=== PATIENT | male | born 1990 | race African-American/Black ===

== ENCOUNTER → 2023-04-29 | Emergency (ER) | payer OTHER ==
[~2023-04-29] MED LIST: KETOROLAC 30 MG/ML INJ ONE; NA CHLORIDE 0.9% 1,000 ML ONE
[2023-04-29 19:13] LABS: Specific Gravity 1.018 (1.005-1.030); Urine Bilirubin NEGATIVE (Negative); Urine Blood Negative (Negative); Urine Clarity Clear (Clear); Urine Color Light-Yellow (Yellow); Urine Glucose NEGATIVE (Negative); Urine Protein NEGATIVE (Negative); Urine Urobilinogen Normal (Normal); Urine pH 6.5 (5.0-7.0)
[2023-04-29 19:32] LABS: Absolute Basophils 0.1 K/uL (0-0.5); Absolute Eosinophils 0.2 K/uL (0-0.5); Absolute Lymphocytes (CBC) 2.5 K/uL (0.7-4.9); Basophils % 1.1 % (0-1.3); Eosinophils % 2.9 % (0-4.4); Hematocrit 38.7 % (39.6-49.0); Lymphocytes % 35.3 % (15.3-44.8); MCV 90.3 fL (80-100); MPV 6.3 fL (7.6-11.3); Platelets 357 thou/uL (152-406); RBC Red Blood Cell Count 4.29 M/uL (4.33-5.43)
[2023-04-29 19:33] LABS: Albumin 3.7 g/dL (3.4-5.0); Albumin/Globulin Ratio 0.9 (1.1-1.8); Anion Gap 9.5 mEq/L (5.0-15.0); Bilirubin Total 0.3 mg/dL (0.2-1.0); Globulin 4.2 g/dL (2.3-3.5); Potassium 3.5 mEq/L (3.5-5.1); Protein, Total 7.9 g/dL (6.4-8.2)
--- NOTE | 2023-04-29 20:59 | RAD REPORT ---
EXAM DESCRIPTION: CTAbdomen Pelvis W Contrast - 04/29/2023 8:49 pm CLINICAL HISTORY: ABD PAIN COMPARISON: No comparisons TECHNIQUE: CT of the abdomen and pelvis was performed. All CT scans are performed using dose optimization technique as appropriate and may include automated exposure control or mA/KV adjustment according to patient size. FINDINGS: Lower chest: No acute abnormality. Liver: Hepatic steatosis. Biliary: No biliary ductal dilatation. Stomach: No significant focal abnormality. Duodenum: No significant focal abnormality. Pancreas: No significant abnormality. Spleen: No significant abnormality. Adrenal: No suspicious lesions. Kidney/ureter: No hydronephrosis. No renal calculi. Retroperitoneum: No retroperitoneal adenopathy. Vascular: No aneurysm. Bowel: No significant focal abnormality. Normal appendix. Peritoneum: No ascites or free air. Bladder: Grossly unremarkable. Reproductive: No adnexal masses. Bones: No acute fracture. Other: n/a IMPRESSION: No acute intra-abdominal or pelvic finding. Normal appendix. Hepatic steatosis .
--- NOTE | 2023-04-29 21:10 | ER ---
Nurse's Notes [facility] Name: Reina Benedict Age: 33 yrs Sex: Male : 1990 Arrival Date: 04/29/2023 Time: 18:36 Bed 16 Private MD: Diagnosis: Lower abdominal pain, unspecified Presentation: 04/28 19:01 Chief complaint: Patient states: Low abdominal pain for years, worse today. Coronavirus nj1 screen: Vaccine status: Patient reports being unvaccinated. Ebola Screen: Patient denies travel to an Ebola-affected area in the 21 days before illness onset. Initial Sepsis Screen:. Risk Assessment: Do you want to hurt yourself or someone else? Patient reports no desire to harm self or others. Onset of symptoms. 19:01 Method Of Arrival: Ambulatory [facility] 19:01 Acuity: NADIRA 3 [facility] 19:10 Initial Sepsis Screen: Does the patient meet any 2 criteria? No. Patient's initial jw7 sepsis screen is negative. Does the patient have a suspected source of infection? No. Patient's initial sepsis screen is negative. Historical: - Allergies: 19:03 No Known Allergies; nj1 - PMHx: 19:03 Asthma; nj1 - Immunization history:: Client reports having NOT received the Covid vaccine. - Social history:: Smoking status: Patient reports the use of cigarette tobacco products, smokes one-half pack cigarettes per day. Screenin:07 [facility] ED Fall Risk Assessment (Adult) History of falling in the last 3 months, db including since admission No falls in past 3 months (0 pts) Confusion or Disorientation No (0 pts) Intoxicated or Sedated No (0 pts) Impaired Gait No (0 pts) Mobility Assist Device Used No (0 pt) Altered Elimination No (0 pt) Score/Fall Risk Level 0 - 2 = Low Risk Oriented to surroundings, Maintained a safe environment. Abuse screen: Denies threats or abuse. Denies injuries from another. Nutritional screening: No deficits noted. Tuberculosis screening: No symptoms or risk factors identified. Assessment: 18:55 Reassessment: Patient appears in no apparent distress at this time. Patient and/or db family updated on plan of care and expected duration. Pain level reassessed. Patient is alert, oriented x 3, equal unlabored respirations, skin warm/dry/pink. General: Appears in no apparent distress. comfortable, Behavior is calm, cooperative. Pain: Complains of pain in abdomen. Neuro: Level of Consciousness is awake, alert, obeys commands, Oriented to person, place, time, situation. 19:10 General: Appears in no apparent distress. comfortable, Behavior is calm, cooperative. jw7 19:10 Pain: Complains of pain in left lower quadrant Pain radiates to left low back Pain jw7 currently is 7 out of 10 on a pain scale. Quality of pain is described as sharp, tingling, throbbing, Pain began suddenly, Is continuous. Neuro: Level of Consciousness is awake, alert, obeys commands, Oriented to person, place, time, situation. Cardiovascular: Heart tones S1 S2 present Capillary refill < 3 seconds Clubbing of nail beds is absent JVD is absent Patient's skin is warm and dry. Respiratory: Airway is patent Trachea midline Respiratory effort is even, unlabored, Respiratory pattern is regular, symmetrical, Breath sounds are clear bilaterally. GI: Abdomen is flat, non-distended, Bowel sounds present X 4 quads. Abd is soft X 4 quads Abdomen is tender to palpation in left lower quadrant Reports lower abdominal pain. : No deficits noted. No signs and/or symptoms were reported regarding the genitourinary system. EENT: No deficits noted. No signs and/or symptoms were reported regarding the EENT system. Derm: Skin is intact, is healthy with good turgor, Skin is dry, Skin is normal, Skin temperature is warm. Musculoskeletal: Circulation, motion, and sensation intact. Range of motion: intact in all extremities. 20:00 Reassessment: Patient appears in no apparent distress at this time. No changes from jw7 previously documented assessment. Patient and/or family updated on plan of care and expected duration. Pain level reassessed. Patient is alert, oriented x 3, equal unlabored respirations, skin warm/dry/pink. 21:29 Reassessment: Patient appears in no apparent distress at this time. Patient and/or jw7 family updated on plan of care and expected duration. Pain level reassessed. Patient is alert, oriented x 3, equal unlabored respirations, skin warm/dry/pink. Patient states symptoms have improved. Vital Signs: 19:01 BP 182 / 94; Pulse 96; Resp 18; Pulse Ox 99% ; Weight 124.74 kg; Height 6 ft. 1 in. ; nj1 Pain 7/10; 19:45 BP 155 / 84; Pulse 80; Resp 16 S; Pulse Ox 100% on R/A; jw7 20:30 BP 147 / 81; Pulse 82; Resp 16 S; Pulse Ox 99% on R/A; jw7 19:01 Body Mass Index 36.28 (124.74 kg, 185.42 cm) nj1 19:01 Pain Scale: Adult [facility] ED Course: 18:38 Patient arrived in ED. rg4 18:39 Nataliya Rosenthal PA-C is PHCP. sb4 18:39 Willy Lugo MD is Attending Physician. sb4 19:00 Inserted saline lock: 22 gauge in left antecubital area, using aseptic technique. Blood db collected. 19:03 Triage completed. nj1 19:04 Arm band placed on. nj1 19:07 Patient has correct armband on for positive identification. Bed in low position. Call db light in reach. Side rails up X 1. Pulse ox on. NIBP on. Warm blanket given. 19:08 Glenny Faust, RN is Primary Nurse. db 19:08 Report received from Glenny RN. jw7 19:10 Provided Education on: Use of call light. jw7 19:27 Salina Hope, RN is Primary Nurse. jw7 21:10 Eriberto Pretty MD is Referral Physician. sb4 21:30 No provider procedures requiring assistance completed. IV discontinued, intact, jw7 bleeding controlled, No redness/swelling at site. Pressure dressing applied. Administered Medications: 19:40 Drug: NS 0.9% IV 1000 ml IV at 1 bolus Per protocol; 1000 mL bolus Route: IV; Rate: 1 jw7 bolus; Site: left antecubital; 21:31 Follow up: Response: No adverse reaction; IV Status: Completed infusion; IV Intake: jw7 1000ml 19:40 Drug: TORadol - Ketorolac IVP 30 mg IVP once Route: IVP; Site: left antecubital; jw7 20:20 Follow up: Response: No adverse reaction; Marked relief of symptoms; Pain is decreased jw7 Medication: 21:31 VIS not applicable for this client. jw7 Intake: 21:31 IV: 1000ml; Total: 1000ml. jw7 Outcome: 21:10 Discharge ordered by . sb4 21:30 Discharged to home ambulatory, jw7 21:30 Condition: stable 21:30 Discharge instructions given to patient, Instructed on discharge instructions, follow up and referral plans. medication usage, Demonstrated understanding of instructions, follow-up care, medications, Prescriptions given X 3, 21:31 Patient left the ED. jw7 Signatures: China Jackson rg4 Salina Hope RN RN jw7 Glenny Faust RN RN Nataliya Bridges, PA-C PA-C sb4 Fatemeh Keen RN RN nj1
--- NOTE | 2023-04-29 21:10 | EDPHYS ---
Physician Documentation [facility] Name: Reina Benedict Age: 33 yrs Sex: Male : 1990 Arrival Date: 04/29/2023 Time: 18:36 Bed 16 Private MD: JAN Physician Willy Lugo HPI: 04/28 19:00 This 33 yrs old Black Male presents to ER via Unassigned with complaints of Abdominal sb4 Pain. 19:00 The patient presents with abdominal pain in the left lower quadrant. Onset: The sb4 symptoms/episode began/occurred 2 year(s) ago, and became worse today. The symptoms do not radiate. Associated signs and symptoms: none. The symptoms are described as burning, crampy, sharp, vague. Modifying factors: The symptoms are alleviated by nothing, the symptoms are aggravated by nothing. The patient has not recently seen a physician. LLQ pain for "years" got worse today. denies any other GI symptoms. states he was told it could be a "nerve" problem in the past but never followed up. Historical: - Allergies: 19:03 No Known Allergies; nj1 - PMHx: 19:03 Asthma; nj1 - Immunization history:: Client reports having NOT received the Covid vaccine. - Social history:: Smoking status: Patient reports the use of cigarette tobacco products, smokes one-half pack cigarettes per day. ROS: 19:00 Constitutional: Negative for fever, chills, and weight loss, sb4 19:00 Abdomen/GI: Positive for abdominal pain, 19:00 All other systems are negative, Exam: 19:00 Constitutional: This is a well developed, well nourished patient who is awake, alert, sb4 and in no acute distress. Head/Face: Normocephalic, atraumatic. Eyes: Extra-ocular motions intact. Periorbital areas with no swelling, redness, or edema. ENT: Mucous membranes moist. Cardiovascular: Regular rate and rhythm with a normal S1 and S2. Respiratory: Lungs have equal breath sounds bilaterally, clear to auscultation and percussion. No rales, rhonchi or wheezes noted. No increased work of breathing, no retractions or nasal flaring. Abdomen/GI: Soft, non-tender, no distension. Skin: Warm, dry with normal turgor. Normal color with no rashes, no lesions, and no evidence of cellulitis. MS/ Extremity: Pulses equal, no cyanosis. Neurovascular intact. Full, normal range of motion. Neuro: Awake and alert, GCS 15, oriented to person, place, time, and situation. Motor strength 5/5 in all extremities. Sensory grossly intact. Vital Signs: 19:01 BP 182 / 94; Pulse 96; Resp 18; Pulse Ox 99% ; Weight 124.74 kg; Height 6 ft. 1 in. ; nj1 Pain 7/10; 19:45 BP 155 / 84; Pulse 80; Resp 16 S; Pulse Ox 100% on R/A; jw7 20:30 BP 147 / 81; Pulse 82; Resp 16 S; Pulse Ox 99% on R/A; jw7 19:01 Body Mass Index 36.28 (124.74 kg, 185.42 cm) nj1 19:01 Pain Scale: Adult nj1 MDM: 18:44 Patient medically screened. sb4 19:00 Differential diagnosis: diverticulitis, non-specific abd pain, Ureterolithiasis, sb4 urinary tract infection, hernia, muscle strain, neuropathy. 21:09 Data reviewed: vital signs, nurses notes, lab test result(s), radiologic studies, and sb4 as a result, I will discharge patient. Counseling: I had a detailed discussion with the patient and/or guardian regarding the historical points, exam findings, and any diagnostic results supporting the discharge/admit diagnosis, lab results, radiology results, the need for outpatient follow up, a complex manager, to return to the emergency department if symptoms worsen or persist or if there are any questions or concerns that arise at home. 04/28 18:45 Order name: CBC with Diff; Complete Time: 19:41 sb4 04/28 18:45 Order name: CMP; Complete Time: 19:41 sb4 04/28 18:45 Order name: Lipase; Complete Time: 19:41 sb4 04/28 18:45 Order name: Urinalysis w/ reflexes; Complete Time: 19:14 sb4 04/28 19:49 Order name: CT Abd/Pelvis - IV Contrast Only sb4 04/28 21:00 Order name: CT; Complete Time: 21:01 EDMS 04/28 18:45 Order name: IV Saline Lock; Complete Time: 19:07 sb4 04/28 18:45 Order name: Labs collected and sent; Complete Time: 19:07 sb4 Administered Medications: 19:40 Drug: NS 0.9% IV 1000 ml IV at 1 bolus Per protocol; 1000 mL bolus Route: IV; Rate: 1 jw7 bolus; Site: left antecubital; 21:31 Follow up: Response: No adverse reaction; IV Status: Completed infusion; IV Intake: jw7 1000ml 19:40 Drug: TORadol - Ketorolac IVP 30 mg IVP once Route: IVP; Site: left antecubital; jw7 20:20 Follow up: Response: No adverse reaction; Marked relief of symptoms; Pain is decreased jw7 Disposition Summary: 04/29/23 21:10 Discharge Ordered Notes: Location: Home sb4 Problem: an ongoing problem sb4 Symptoms: have improved sb4 Condition: Stable sb4 Diagnosis - Lower abdominal pain, unspecified sb4 Followup: sb4 - With: Eriberto Pretty MD - When: As needed - Reason: Further diagnostic work-up, Recheck today's complaints, Re-evaluation by your physician Discharge Instructions: - Discharge Summary Sheet sb4 - Abdominal Pain, Adult, [id number] sb4 Forms: - Thank You Letter sb4 - Patient Portal Instructions sb4 - Leadership Thank You Letter sb4 Prescriptions: - gabapentin 100 mg Oral capsule - take 1 capsule ORAL route every 8 hours; 20 capsule; Refills: 0, Product sb4 Selection Permitted - Diclofenac Sodium 75 mg Oral Tablet Sustained Release - take 1 tablet ORAL route 2 times per day; 30 tablet; Refills: 0, Product sb4 Selection Permitted - dicyclomine 20 mg Oral tablet - take 1 tablet ORAL route 3 times per day; 20 tablet; Refills: 0, Product sb4 Selection Permitted Signatures: [facility] Salina Hope RN RN jw7 Nataliya Rosenthal PAOlivier PAOlivier sb4 Fatemeh Keen RN RN nj1 Corrections: (The following items were deleted from the chart) 19:23 18:45 Test, Urine+UC.LAB.BRZ ordered. EDMS EDMS 19:23 19:14 Test, Urine+UC.LAB.BRZ reviewed. sb4 EDMS
[2023-04-29 21:47] VITALS: BP 147/81; O2SAT 99
== END ==
LOC: ER 18:36
DX: R10.32 Left lower quadrant pain (principal); F17.210 Nicotine dependence, cigarettes, uncomplicated
CPT/HCPCS: 96361; 85025; 36415; 81003; 83690; 80053; 74177; 96374; 99284; Q9967; J7030